=== PATIENT | male | born 1950 | race Caucasian/White ===

== ENCOUNTER 2017-05-03 10:44 | Observation (INO) | payer OTHER ==
[2017-05-03] MEDS ORDERED: ONDANSETRON 4 MG/2 ML VIAL ONE ×2 (10:53→16:01)
[2017-05-03] MEDS ORDERED: ONDANSETRON 4 MG/2 ML VIAL IVP ONE ×2 (10:55→12:18)
[2017-05-03] MEDS ORDERED: HYDROmorphONE/DILAUDID 1 MG/ML SYR IVP ONE ×2 (10:55→12:39)
[2017-05-03] MEDS ORDERED: NS 1,000 ML IV ONE (10:55)
[2017-05-03] MEDS ORDERED: HYDROmorphONE/DILAUDID 1 MG/ML SYR ONE (10:56)
[2017-05-03 11:07] LABS: % IMMATURE GRANULYOCYTES 0.5 % (0.0-1.1); ABSOLUTE IMMATURE GRANULOCYTES 0.05 10^3/uL (0.00-0.10); ADD DIFF? NO; ADD MORPH? NO; ADD SCAN? NO; ATYPICAL LYMPHOCYTE FLAG 0 (0-99); FRAGMENT RBC FLAG 0 (0-99); HEMATOCRIT 49.2 % (40.0-51.0); HEMOGLOBIN 17.9 g/dL (13.7-17.5); LEFT SHIFT FLG 0 (0-99); LIPEMIA HEMOLYSIS FLAG 90 (0-99); MEAN CELL HEMOGLOBIN 32.2 pg (27.9-34.1); MEAN CELL HEMOGLOBIN CONCENTR. 36.4 g/dL (32.4-36.7); MEAN CELL VOLUME 88.5 fL (81.5-99.8); MEAN PLATELET VOLUME 9.9 fL (8.7-11.7); PLATELET CLUMPS FLAG 10 (0-99); PLATELET COUNT 252 10^3/uL (150-400); RED BLOOD CELL COUNT 5.56 10^6/uL (4.40-6.38)
[2017-05-03] MEDS ORDERED: KETAMINE 100 MG/10 ML SYR IVP ONE (11:14)
[2017-05-03 11:18] LABS: ALANINE AMINOTRANSFERASE 33 IU/L (21-72); ALBUMIN 4.2 g/dL (3.5-5.0); ALKALINE PHOSPHATASE 81 IU/L (38-126); ANION GAP 14 mEq/L (8-16); ASPARTATE AMINOTRANSFERASE 27 IU/L (17-59); BILIRUBIN,TOTAL 1.5 mg/dL (0.1-1.4); BILIRUBIN-CONJUGATED 0.4 mg/dL (0.0-0.5); BILIRUBIN-UNCONJUGATED 1.1 mg/dL (0.0-1.1); CALCIUM 10.4 mg/dL (8.5-10.4); CARBON DIOXIDE 24 mEq/l (22-31); CHLORIDE 97 mEq/L (97-110); GLOMERULAR FILTRATION RATE > 60; GLUCOSE 162 mg/dL (70-100); POTASSIUM 3.8 mEq/L (3.5-5.2); SODIUM 135 mEq/L (134-144); TOTAL PROTEIN 6.9 g/dL (6.3-8.2)
[2017-05-03] MEDS ORDERED: IOPAMIDOL (ISOVUE-300) 100 ML BTL ONE (11:38)
[2017-05-03] MEDS ORDERED: LORazepam 2 MG/ML INJ IVP ONE (12:02)
[2017-05-03] MEDS ORDERED: FAMOTIDINE 20 MG/2 ML SDV ONE (12:51)
[2017-05-03] MEDS ORDERED: LR 1,000 ML IV SCH (14:00)
--- NOTE | 2017-05-03 14:31 | GDS ---
[f rep st] HISTORY AND PHYSICAL Corrected report CHIEF COMPLAINT: Abdominal pain. PRESENT ILLNESS: A 66-year-old male seen in the emergency department for abdominal pain. At the time of my interview, he is actually fairly pain-free and has a soft abdomen. However, apparently earlier he was screaming in pain, demanding pain medicines, such that he was given both Dilaudid and ketamine. 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 A CT scan showed small-bowel dilatation consistent with small-bowel obstruction, probable transition zone in the right lower quadrant, and a question of an internal hernia in the pericecal area. Incidentally noted were some renal cysts. ALLERGIES: Prilosec. CURRENT MEDICATIONS: Levothyroxine, some Vicodin for knee pain. He is actually scheduled for bilateral knee replacement tomorrow in [place]. He usually takes Advil, but has been holding that for the upcoming knee replacement. ALCOHOL USE: Daily. SMOKING: None. MARITAL STATUS: . REVIEW OF SYSTEMS: Denies asthma, heart trouble, epilepsy, rheumatic fever. PHYSICAL EXAM: HEENT: Within normal limits. No scleral icterus. Pharynx clear. NECK: Supple without adenopathy. LUNGS: Clear. HEART: Normal S1, S2 without murmur. ABDOMEN: Soft, not particularly distended, and minimal tenderness, if at all. Again, this may be due to medicine effects. EXTREMITIES AND NEUROLOGIC: Grossly normal. LABORATORY EXAM: A white blood count of 10,000. Bilirubin 1.5. CT scan as described above. ASSESSMENT: CT scan concerning for small-bowel obstruction. Possible internal hernia. Given that the patient was apparently writhing in pain and inconsolable , he well might need to go to surgery today. I would not usually put an NG tube in someone just based on the CT scan. He has only vomited once today, and we will monitor his progress. I will stop his pain medicine, reassess him in a few hours, and should his pain be significant, we will likely recommend laparoscopy or laparotomy later today. /[id number]/MODL Laura worktype, 05/04/17, evgeny TERRY
--- NOTE | 2017-05-03 14:48 | EDPHY ---
H & P Stated Complaint: abd pain Time Seen by Provider: 05/03/17 10:52 HPI/ROS: Chief complaint: Abdominal pain History of present illness: This is a 66-year-old male who presents to the emergency department for evaluation of abdominal pain. Patient reports the onset of symptoms this morning. He describes severe pain all across his abdomen. He has had associated nausea but no vomiting. He denies precipitating factors. He has not found any alleviating factors. He denies other associated signs or symptoms including no diarrhea or constipation, no urinary symptoms, no fever. Patient has never had similar symptoms. Review of systems: A 10 point review of systems was obtained and other than described above was negative - Personal History Current Tetanus/Diphtheria Vaccine: Unsure - Medical/Surgical History Hx Asthma: No Hx Chronic Respiratory Disease: No Hx Diabetes: No Hx Cardiac Disease: No Hx Renal Disease: No Hx Cirrhosis: No Hx Alcoholism: No Hx HIV/AIDS: No Hx Splenectomy or Spleen Trauma: No Other PMH: knee pain - Social History Smoking Status: Never smoked - Physical Exam Exam: General Appearance: Alert, writhing in bed very uncomfortable. Eyes: Pupils equal and round no pallor or injection. ENT, Mouth: Mucous membranes moist. Respiratory: There are no retractions, lungs are clear to auscultation. Cardiovascular: Regular rate and rhythm. Gastrointestinal: Bowel sounds are diminished. Abdomen is soft, nondistended, nontender. Neurological: Alert and oriented x4. Strength and sensation intact and symmetrical. Skin: Warm and dry, no rashes. Musculoskeletal: Neck is supple non tender. Extremities are symmetrical, full range of motion. Psychiatric: Patient is oriented X 3, there is no agitation. Constitutional: Initial Vital Signs Temperature (C) 36.7 C 05/03/17 10:47 Heart Rate 83 05/03/17 10:47 Respiratory Rate 18 05/03/17 10:47 Blood Pressure 114/68 05/03/17 10:47 O2 Sat (%) 97 05/03/17 10:47 O2 Delivery Mode Nasal Cannula O2 (L/minute) 2 Allergies/Adverse Reactions: No Known Allergies Allergy (Unverified 05/03/17 10:45) Home Medications: Medication Instructions Recorded ALPRAZolam [Xanax 0.5 MG (*)] 0.5 mg PO HS 05/03/17 Cyclobenzaprine [Flexeril 10 MG 10 mg PO HS 05/03/17 (*)] Hydrocodone/Acetaminophen [[place] 1 each PO TID PRN 05/03/17 5/325 (*)] Levothyroxine [Synthroid 25 mcg 25 mcg PO DAILY06 05/03/17 (*)] Mirtazapine [Mirtazapine] 15 mg PO HS 05/03/17 Ramelteon [Rozerem] 8 mg PO HS 05/03/17 Tadalafil [Cialis] 5 mg PO DAILY 05/03/17 Medical Decision Making - Diagnostics Imaging Results: Imaging Impressions Abdomen CT 05/03/17 11:21 Impression: Partial small bowel obstruction with a possible transition at the distal ileum and a possible pericecal internal hernia. Results called and discussed with Arthur Akhtar PA-C on May 03, 2017 at 1233 hours. Imaging: Discussed imaging studies w/ business planning manager Radiologist ED Course/Re-evaluation: Patient is discussed with my primary supervising physician Dr. Keiko Mcfarlane. Patient presents to the emergency department for abdominal pain with nausea. On presentation patient appears to be extremely uncomfortable. He is afebrile and vital signs are stable. Ultimately evaluation appears to be a small-bowel obstruction and possible internal hernia. Patient received multiple rounds of pain medication to get control of symptoms. I have talked with his primary care group, Mr. Clive Banuelos physician operator/assistant foreman. He is comfortable admission to surgery, Dr. Cristian Lance. Dr. Lance has been consulted and will admit the patient for further care. The plan has been discussed with the patient voiced understanding and agreement with it. Differential Diagnosis: Included but not limited to gastritis, legal entity controller, biliary tract disease , pancreatitis, colitis, bowel obstruction, bowel perforation, urinary tract disease including kidney stone - Data Points Laboratory Results: Laboratory Results 05/03/17 10:55 05/03/17 10:55 05/03/17 05/03/17 10:55 10:55 WBC 10.76 10^3/uL H 10^3/uL (3.80-9.50) RBC 5.56 10^6/uL 10^6/uL (4.40-6.38) Hgb 17.9 g/dL H g/dL (13.7-17.5) Hct 49.2 % % (40.0-51.0) MCV 88.5 fL fL (81.5-99.8) MCH 32.2 pg pg (27.9-34.1) MCHC 36.4 g/dL g/dL (32.4-36.7) RDW 12.0 % % (11.5-15.2) Plt Count 252 10^3/uL 10^3/uL (150-400) MPV 9.9 fL fL (8.7-11.7) Neut % (Auto) 85.6 % H % (39.3-74.2) Lymph % (Auto) 6.4 % L % (15.0-45.0) [place] % (Auto) 7.1 % % (4.5-13.0) Eos % (Auto) 0.1 % L % (0.6-7.6) Baso % (Auto) 0.3 % % (0.3-1.7) Nucleat RBC Rel Count 0.0 % % (0.0-0.2) Absolute Neuts (auto) 9.22 10^3/uL H 10^3/uL (1.70-6.50) Absolute Lymphs (auto) 0.69 10^3/uL L 10^3/uL (1.00-3.00) Absolute Monos (auto) 0.76 10^3/uL 10^3/uL (0.30-0.80) Absolute Eos (auto) 0.01 10^3/uL L 10^3/uL (0.03-0.40) Absolute Basos (auto) 0.03 10^3/uL 10^3/uL (0.02-0.10) Absolute Nucleated RBC 0.00 10^3/uL 10^3/uL (0-0.01) Immature Gran % 0.5 % % (0.0-1.1) Immature Gran # 0.05 10^3/uL 10^3/uL (0.00-0.10) Sodium 135 mEq/L mEq/L (134-144) Potassium 3.8 mEq/L mEq/L (3.5-5.2) Chloride 97 mEq/L mEq/L (97-110) Carbon Dioxide 24 mEq/l mEq/l (22-31) Anion Gap 14 mEq/L mEq/L (8-16) BUN 14 mg/dL mg/dL (7-23) Creatinine 1.0 mg/dL mg/dL (0.7-1.3) Estimated GFR > 60 Glucose 162 mg/dL H mg/dL (70-100) Calcium 10.4 mg/dL mg/dL (8.5-10.4) Total Bilirubin 1.5 mg/dL H mg/dL (0.1-1.4) Conjugated Bilirubin 0.4 mg/dL mg/dL (0.0-0.5) Unconjugated Bilirubin 1.1 mg/dL mg/dL (0.0-1.1) AST 27 IU/L IU/L (17-59) ALT 33 IU/L IU/L (21-72) Alkaline Phosphatase 81 IU/L IU/L (38-126) Total Protein 6.9 g/dL g/dL (6.3-8.2) Albumin 4.2 g/dL g/dL (3.5-5.0) Lipase 124.0 IU/L IU/L (23-300) Medications Given: Discontinued Medications Hydromorphone HCl (Dilaudid) 1 mg IVP EDNOW ONE Stop: 05/03/17 10:56 Last Admin: 05/03/17 11:02 Dose: 1 mg Hydromorphone HCl (Dilaudid) 1 mg IVP EDNOW ONE Stop: 05/03/17 12:40 Last Admin: 05/03/17 12:40 Dose: 1 mg Sodium Chloride (Ns) 1,000 mls @ 0 mls/hr IV ONCE ONE; Wide Open PRN Reason: Protocol Stop: 05/03/17 10:56 Last Admin: 05/03/17 11:03 Dose: 1,000 mls Ketamine HCl (Ketamine) 18.1 mg 0.2 mg/kg (18.1 mg) IVP EDNOW ONE Stop: 05/03/17 11:15 Last Admin: 05/03/17 11:22 Dose: 18.1 mg Lorazepam (Ativan Injection) 1 mg IVP EDNOW ONE Stop: 05/03/17 12:03 Last Admin: 05/03/17 12:18 Dose: 1 mg Ondansetron HCl (Zofran) 4 mg IVP EDNOW ONE Stop: 05/03/17 10:56 Last Admin: 05/03/17 11:03 Dose: 4 mg Ondansetron HCl (Zofran) 4 mg IVP EDNOW ONE Stop: 05/03/17 12:19 Last Admin: 05/03/17 12:19 Dose: 4 mg Departure - Departure Disposition: [facility] Inpatient Acute Clinical Impression: SBO (small bowel obstruction) Condition: Fair
[2017-05-03] MEDS ORDERED: HYDROmorphONE/DILAUDID 1 MG/ML SYR IVP PRN ×2 (15:01→16:38)
[2017-05-03] MEDS ORDERED: LR 1,000 ML IV ONE (15:11)
[2017-05-03] MEDS ORDERED: BACITRACIN 50,000 UNITS/10 ML SYR IRR ONE (15:25)
[2017-05-03] MEDS ORDERED: POLYMYXIN B SULFATE 500,000 UNIT/10 ML SYR IRR ONE (15:25)
[2017-05-03] MEDS ORDERED: BUPIVACAINE 0.5% 30 ML SDV ONE (15:25)
[2017-05-03] MEDS ORDERED: MIDAZOLAM 2 MG/2 ML VIAL IVP ONE (15:51)
--- NOTE | 2017-05-03 15:51 | PDANEPAE ---
ANE History of Present Illness Abd pain 26 hrs ANE Past Medical History - Cardiovascular History Hx Hypertension: No Hx Arrhythmias: No Hx Chest Pain: No Hx Coronary Artery / Peripheral Vascular Disease: No Hx CHF / Valvular Disease: No - Pulmonary History Hx COPD: No Hx Asthma/Reactive Airway Disease: No Hx Recent Upper Respiratory Infection: No Hx Oxygen in Use at Home: No - Endocrine History Hx Diabetes: No Hypothyroid: Yes Hyperthyroid: No - Renal History Hx Renal Disorders: No - Liver History Hx Hepatic Disorders: No ANE Review of Systems - Systems Constitutional: Reports: other (Insomnia) ANE Patient History - Allergies Allergies/Adverse Reactions: No Known Allergies Allergy (Unverified 05/03/17 10:45) - Home Medications Home Medications: ALPRAZolam [Xanax 0.5 MG (*)] 0.5 mg PO HS 05/03/17 [Last Taken 05/02/17] Cyclobenzaprine [Flexeril 10 MG (*)] 10 mg PO HS 05/03/17 [Last Taken 05/02/17] Hydrocodone/Acetaminophen [[place] 5/325 (*)] 1 each PO TID PRN 05/03/17 [Last Taken Unknown] Levothyroxine [Synthroid 25 mcg (*)] 25 mcg PO DAILY06 05/03/17 [Last Taken ] Mirtazapine [Mirtazapine] 15 mg PO HS 05/03/17 [Last Taken 05/02/17] Ramelteon [Rozerem] 8 mg PO HS 05/03/17 [Last Taken 05/02/17] Tadalafil [Cialis] 5 mg PO DAILY 05/03/17 [Last Taken 05/03/17] - NPO status NPO Since - Liquids (Date): 05/03/17 NPO Since - Liquids (Time): 08:00 NPO Since - Solids (Date): 05/01/17 - Smoking Hx Smoking Status: Never smoked ANE Labs/Vital Signs - Labs Result Diagrams: 05/03/17 10:55 05/03/17 10:55 - Vital Signs Blood Pressure: 129/80 Heart Rate: 87 Respiratory Rate: 17 O2 Sat (%): 87 Height: 187.96 cm Weight: 90.718 kg ANE Physical Exam - Airway Mallampati Score: Class 1 Mouth exam: normal dental/mouth exam - Pulmonary Pulmonary: no respiratory distress - Cardiovascular Cardiovascular: regular rate and rhythym - ASA Status ASA Status: II ANE Anesthesia Plan Anesthesia Plan: general endotracheal anesthesia
[2017-05-03] MEDS ORDERED: MIDAZOLAM 2 MG/2 ML VIAL ONE (15:58)
[2017-05-03] MEDS ORDERED: CEFAZOLIN 2 GM/DEXTROSE/100 ML BAG IV ONE (15:59)
[2017-05-03] MEDS ORDERED: PROPOFOL 200 MG/20 ML VIAL ONE (16:00)
[2017-05-03] MEDS ORDERED: HYDROmorphONE/DILAUDID 2 MG/ML INJ ONE (16:00)
[2017-05-03] MEDS ORDERED: ROCURONIUM 50 MG/5 ML VIAL ONE (16:01)
[2017-05-03] MEDS ORDERED: DEXAMETHASONE 4 MG/ML VIAL ONE ×2 (16:01)
[2017-05-03] MEDS ORDERED: LIDOCAINE 2% 5 ML SDV ONE (16:01)
[2017-05-03] MEDS ORDERED: SUGAMMADEX SODIUM 200 MG/2 ML VIAL IVP ONE (16:01)
[2017-05-03] MEDS ORDERED: ceFAZolin 2 GM/DEXTROSE 100 ML IV ONE (16:30)
[2017-05-03] MEDS ORDERED: PROMETHAZINE HCL 25 MG/ML INJ IVP PRN (16:38)
[2017-05-03] MEDS ORDERED: NALOXONE HCL 0.4 MG/ML INJ IVP PRN (16:38)
[2017-05-03] MEDS ORDERED: fentaNYL 100 MCG/2 ML INJ IVP PRN (16:38)
[2017-05-03] MEDS ORDERED: LR 500 ML IV PRN (16:38)
[2017-05-03] MEDS ORDERED: MEPERIDINE 25 MG/ML SYR IVP PRN (16:38)
[2017-05-03] MEDS ORDERED: ONDANSETRON 4 MG/2 ML VIAL IVP PRN ×2 (16:38→16:59)
[2017-05-03] MEDS ORDERED: KETOROLAC 30 MG/1 ML SDV ONE (16:43)
--- NOTE | 2017-05-03 16:59 | POSTOPPROG ---
Post Op Note Date of Operation: 05/03/17 Surgeon: Cristian Lance Anesthesiologist: lillian galdamez Anesthesia: GET(General Endotracheal) Pre-op Diagnosis: sbo Post-op Diagnosis: sbo Indication: sbo Procedure: laparoscopy with lysis of adhesions Findings: adhesive band across terminal ileum Inf/Abcess present in the surg proc area at time of surgery?: No EBL: Minimal Complications: none
[2017-05-03] MEDS ORDERED: HYDROCODONE/APAP 5/325 TAB PO PRN (17:04)
--- NOTE | 2017-05-03 17:10 | POSTANESTH ---
Post Anesthetic Evaluation Cardiovascular Status: Normal, Stable, Similar to Pre-Op Cond Respiratory Status: Normal, Stable, Similar to Pre-op Cond. Level of Consciousness/Mental Status: Can Participate in Eval, Mildly Sleepy, Arousable Pain Control: Adequate, Prn Tx Ordered Nausea/Vomiting Control: Adequate, Prn Tx Ordered Complications Possibly Related to Anesthesia: None Noted
--- NOTE | 2017-05-03 17:25 | GOP ---
[f rep st] OPERATIVE REPORT DATE OF OPERATION: SURGEON: Cristian Lance MD ANESTHESIA: General anesthetic. PREOPERATIVE DIAGNOSIS: Small-bowel obstruction. POSTOPERATIVE DIAGNOSIS: Small-bowel obstruction. PROCEDURE PERFORMED: Laparoscopy with lysis of adhesions. FINDINGS: INDICATIONS: A 66-year-old male with intense right lower quadrant pain. A CT scan, suggestive of a n internal hernia, small bowel obstruction. DESCRIPTION OF PROCEDURE: The abdomen scrubbed with ChloraPrep. A puncture was made with a Veress needle in the left upper quadrant and a 5 mm port placed. Two additional 5 mm ports were placed in the left flank. Examination of the abdomen showed an adhesive band from the cecum across the termin al ilium to the omentum. This was trapping the small bowel. This was lifted up and cut with cold s cissors. An additional adhesive band, which could be the source of a future obstruction, was also i dentified and lysed. No other problems were seen in the abdomen. Some blood-tinged fluid in the ri t upper quadrant was aspirated as was fluid in the pelvis. The gas was vented, ports removed, ski n closed with 4-0 Vicryl and Dermabond. The patient tolerated the procedure well. SURGEON: Dr. Lance. /[id number]/MODL
[2017-05-03] MEDS: D5W 1/2 NS W/ 20 KCl/L 1,000 ML IV SCH (18:11)
[2017-05-03] MEDS: KETOROLAC 15 MG/1 ML SDV IVP SCH ×2 (18:19→23:07)
[2017-05-03 18:22] VITALS: RESP 16
[2017-05-03] MEDS ORDERED: MIRTAZAPINE 15 MG TAB PO SCH (21:00)
[2017-05-03] MEDS ORDERED: ALPRAZolam 1 MG TAB PO SCH (21:00)
[2017-05-03] MEDS ORDERED: ROZEREM 8 MG PO SCH (21:00)
[2017-05-04] MEDS: D5W 1/2 NS W/ 20 KCl/L 1,000 ML IV SCH (04:45)
[2017-05-04] MEDS: KETOROLAC 15 MG/1 ML SDV IVP SCH (05:40)
--- NOTE | 2017-05-04 07:22 | GDS ---
[f rep st] DISCHARGE SUMMARY PRESENT ILLNESS: Patient was admitted with a bowel obstruction. He underwent laparoscopic lysis of adhesions. Feels much better. He has had a bowel movement. Was discharged home. DISPOSITION: Follow up with Dr. Lance in a week. /[id number]/MODL MTDD
[2017-05-04 08:15] VITALS: BP 104/68; PULSE 70; TEMP 97.6; O2SAT 93
== END 2017-05-04 11:43 | disposition home or self-care (01) ==
LOC: INTOOBSV 12:39 → F1N 14:21
PROVIDERS: ADMIT Surgery; ATTEND Surgery
PROC: 0DNB4ZZ Release Ileum, Percutaneous Endoscopic Approach (ICD-10-PCS; principal; 2017-05-03 15:01)
DX: K56.69 Other intestinal obstruction (principal); K66.0 Peritoneal adhesions (postprocedural) (postinfection)
CPT/HCPCS: 44180; 74177; G0378; J0690; J1100; J1170; J1885; J2060; J2250; J2405; J2704; Q9967; 96374